=== PATIENT | male | born 1950 | race Caucasian/White ===

== ENCOUNTER 2020-02-09 18:33 | Emergency (ER) | payer MEDICARE, OTHER ==
[2020-02-09 19:03] LABS: #Lymphocytes 0.6 thou/uL (1.20-3.40); #Monocytes 0.6 thou/uL (0.11-0.59); #Neutrophils 2.7 thou/uL (1.40-6.50); %Basophils 0.7 % (0.0-1.0); %Eosinophils 0.8 % (0.0-10.0); %Lymphocytes 15.5 % (21.0-51.0); %Monocytes 13.9 % (0.0-10.0); %Neutrophils 69.1 % (42.0-75.0); Hemoglobin 15.6 g/dL (14.0-18.0); Mean Corpuscular HGB CONC 31.4 g/dL (32.0-36.0); Mean Corpuscular Hemoglobin 30.8 pg (27.0-31.0); Mean Corpuscular Volume 98.2 fL (78.0-98.0); Platelet Count 217 thou/uL (130-400); RBC Distribution Width 12.6 % (11.5-14.5); Red Blood Cell (RBC) Count 5.06 mill/uL (4.70-6.10); White Blood Cell (WBC) Count 3.9 thou/uL (4.8-10.8)
[2020-02-09] MEDS ORDERED: Ondansetron PF 4 MG/2 ML Vial ONE ×2 (19:04→20:12)
[2020-02-09 19:19] LABS: ALT (SGPT) 26 U/L (8-55); AST (SGOT) 34 U/L (5-34); Alkaline Phosphatase 86 U/L (40-110); Anion Gap 15 mmol/L (10-20); BUN (Urea Nitrogen) 21 mg/dL (8.4-25.7); Bilirubin, Total 0.4 mg/dL (0.2-1.2); Calc. Creatinine Clearance 0 mL/min (70-130); Calcium 9.5 mg/dL (7.8-10.44); Carbon Dioxide 27 mmol/L (23-31); Chloride 99 mmol/L (98-107); Globulin 3.4 g/dL (2.4-3.5); Glucose 78 mg/dL (83-110); Potassium 4.2 mmol/L (3.5-5.1); Protein, Total 7.4 g/dL (5.8-8.1); Sodium 137 mmol/L (136-145)
--- NOTE | 2020-02-09 19:51 | RAD ---
XR Chest 1 View HISTORY: Cough COMPARISON: 09/30/2013 FINDINGS: The heart size is normal. Changes of median sternotomy are again seen. The lungs are well e xpanded without focal areas of consolidation, pneumothorax or pleural effusions. IMPRESSION: No radiographic evidence of acute cardiopulmonary process.
[2020-02-09] MEDS ORDERED: Acetaminophen 500 MG TAB ONE (20:48)
[2020-02-09 21:16] LABS: Bacteria/HPF None Seen HPF (None Seen); Bilirubin Negative (Negative); Blood, Urine Negative (Negative); Clarity Clear (Clear); Glucose, Urine (Dipstick) Greater than 1000 mg/dL (Negative); Ketone, Urine 60 mg/dL (Negative); Leukocyte Negative Leu/uL (Negative); Nitrite Negative (Negative); Protein, Urine (Dipstick) 30 mg/dL (Neg-Trace); RBC/HPF 0-3 HPF (0-3); Specific Gravity, Urine 1.037 (1.002-1.036); Squamous Epithelial None Seen HPF (0-3); Urobilinogen Normal mg/dL (Less than 2); WBC/HPF 0-3 HPF (0-3); pH, Urine 5.5 (5.0-9.0)
--- NOTE | 2020-02-23 16:57 | EKG ---
Test Reason : Blood Pressure : / mmHG Vent. Rate : 090 BPM Atrial Rate : 090 BPM P-R Int : 158 ms QRS Dur : 146 ms QT Int : 376 ms P-R-T Axes : 050 024 076 degrees QTc Int : 459 ms Normal sinus rhythm Right bundle branch block Abnormal ECG Confirmed by SARAH NELSON DO ([id number]), primer expeditor and drier NASH MORAN ([id number]) on 02/23/2020 4:56:49 PM Referred By: Confirmed By:SARAH NELSON DO
== END 2020-02-09 21:10 | disposition home or self-care (01) ==
LOC: ERS 18:33
DX: B34.9 Viral infection, unspecified (principal); R53.1 Weakness; E10.9 Type 1 diabetes mellitus without complications; E78.5 Hyperlipidemia, unspecified; E78.00 Pure hypercholesterolemia, unspecified; I10 Essential (primary) hypertension; Z79.4 Long term (current) use of insulin; Z79.899 Other long term (current) drug therapy
CPT/HCPCS: 36415; 71045; 80053; 81003; 81015; 84484; 85025; 93005; 96374; 96376; J2405

== ENCOUNTER 2020-02-10 19:17 | Emergency (ER) | payer MEDICARE, OTHER ==
--- NOTE | 2020-02-10 20:07 | RAD ---
XR Chest 1 View Portable HISTORY: Fever COMPARISON: Previous day FINDINGS: The heart size is normal. Changes of median sternotomy are again seen. The lungs are well e xpanded without focal areas of consolidation, pneumothorax or pleural effusions. IMPRESSION: No radiographic evidence of acute cardiopulmonary process.
[2020-02-10] MEDS ORDERED: Azithromycin 500 MG VIAL ONE (21:21)
[2020-02-10] MEDS ORDERED: Apixaban 2.5 MG TAB PO SCH (21:30)
[2020-02-10] MEDS ORDERED: Azithromycin 250 MG TAB ONE (21:34)
== END 2020-02-10 21:45 | disposition home or self-care (01) ==
LOC: ERS 19:17
DX: U07.1 COVID-19 (principal); E10.9 Type 1 diabetes mellitus without complications; E78.5 Hyperlipidemia, unspecified; E78.00 Pure hypercholesterolemia, unspecified; I10 Essential (primary) hypertension; Z79.899 Other long term (current) drug therapy; Z79.82 Long term (current) use of aspirin
CPT/HCPCS: 71045; J0456

== ENCOUNTER 2020-03-25 07:29 | Outpatient (CLI) | payer OTHER ==
--- NOTE | 2020-03-25 08:42 | MRI ---
MRI of thelumbar spine: 03/25/2020 COMPARISON:None available HISTORY:Bilateral lower extremity radiculopathy, back pain TECHNIQUE: Multiplanar multisequence MR imaging of thelumbar spine without contrast Findings:The sagittal STIR imaging demonstrates no focal area of osseous marrow edema. On the basis o f 5 lumbar type vertebral bodies, the conus medullaris terminates at the L1 level. T12-L1: There is disc space narrowing with disc desiccation and mild disc bulge. Mild bilateral facet hypertrophy with no significant central canal or neural foraminal stenosis. L1-2: Mild bilateral facet hypertrophy. No central canal or neural foraminal stenosis. L2-3: Mild bilateral facet hypertrophy, left greater than right. No significant central canal or neur al foraminal stenosis. L3-4: There is disc desiccation with mild bilateral facet hypertrophy. There is mild left neural fora ryan stenosis. No significant central canal or right neural foraminal stenosis. L4-5: There is disc space narrowing and disc desiccation. There is a central annular tear with an ass ociated central disc protrusion. There is also prominent bilateral facet hypertrophy and hypertrophy of the ligamentum flavum. Findings lead to severe central canal stenosis. There is mild r ight and severe left neural foraminal stenosis. L5-S1: Significant bilateral facet hypertrophy, right greater than left. No central canal stenosis. M oderate right and mild left neural foraminal stenosis. The imaged retroperitoneal structures demonstrate no acute findings. Axial imaging is limited by harry ent motion artifact IMPRESSION:There is multilevel degenerative change within the lumbar spine, most prominent at the L4- 5 level as detailed above.
== END 2020-03-25 07:30 | disposition home or self-care (01) ==
LOC: TBSIIMAG 07:29
PROVIDERS: ATTEND Physical Medicine & Rehabilitation
DX: M47.26 Other spondylosis with radiculopathy, lumbar region (principal)
CPT/HCPCS: 72148

== ENCOUNTER 2020-05-19 06:30 | Observation (INO) | payer MEDICARE, OTHER ==
[2020-05-16 10:53] VITALS: BMI 28.8
--- NOTE | 2020-05-19 12:13 | OP ---
DATE OF PROCEDURE: 05/19/2020 RESTAURANT GREETER: Efe. PROCEDURE PERFORMED: L4-L5 laminectomy. DESCRIPTION OF PROCEDURE: The patient was brought to the operating room and intubated. He was rolled in a prone position on gel-filled chest rolls. Incision made, exposing L4 and L5 and the level was confirmed by x-ray. We performed complete L5 and inferior L4 laminectomy, it was completely decompressing the neural elements. The wound was extensively irrigated. Maximum hemostasis was secured. Vancomycin powder was applied and the wound was closed in anatomic layers over a drain. Job ID: [id number]
[2020-05-19] MEDS ORDERED: Morphine 2 MG/ML VIAL SLOW IVP PRN (12:45)
[2020-05-19] MEDS ORDERED: tiZANidine HCl 4 MG TAB PO PRN (12:45)
[2020-05-19] MEDS ORDERED: Ondansetron PF 4 MG/2 ML Vial SLOW IVP PRN (12:45)
[2020-05-19] MEDS ORDERED: diphenhydrAMINE 50 MG/ML VIAL IVP PRN (12:45)
[2020-05-19] MEDS ORDERED: Acetaminophen/Codeine 30-300mg Tablet PO PRN (12:45)
[2020-05-19] MEDS ORDERED: traMADol HCl 50 MG TAB PO PRN ×2 (12:45)
[2020-05-19] MEDS ORDERED: Mag-Al 1200 mg/1200 mg/30 ML UDCUP PO PRN (12:45)
[2020-05-19] MEDS ORDERED: diphenhydrAMINE 25 MG CAP PO PRN (12:45)
[2020-05-19] MEDS ORDERED: Morphine 4 MG/ML VIAL SLOW IVP PRN (12:45)
[2020-05-19] MEDS ORDERED: Promethazine HCl 12.5 MG SUPP PR PRN (12:45)
[2020-05-19] MEDS ORDERED: Promethazine 25 MG TAB PO PRN (12:45)
[2020-05-19] MEDS ORDERED: Milk Of Magnesia 30 ML UDCUP PO PRN (12:45)
[2020-05-19] MEDS ORDERED: Promethazine HCl 25 MG/ML VIAL IM PRN (12:45)
--- NOTE | 2020-05-19 14:15 | PDOC.CONS ---
- Consultation Encounter Date: 05/19/20 Encounter Time: 14:05 CONSULTATION NOTE CONSULT REQUEST BY: Cassandra Wilks PA-C HISTORY OF PRESENT ILLNESS: Mr. Reyna is a 70 year-old male with a PMHx of T2DM, HLD, Hypothyroidism, HTN, CAD s/p 3v CABG, GERD, CKD, PAT with CPAP, and lumbar stenosis who underwent a laminectomy with Dr. Zaidi on 05/19/20. Hospitalist service was consulted for medical management of patient's chronic conditions. Patient was examined at the bedside post-operatively and endorses mild pain, but otherwise has no complaints. He denies any chest pain, SOB, abdominal pain. Denies any new numbness weakness or paresthesias. He denies nausea and has not yet passed gas. Chart and medications reviewed. REVIEW OF SYSTEMS: Constitutional: denies: fever, chills, sweats, weakness, malaise, other Eyes: denies: pain, vision change, conjunctivae inflammation, eyelid inflammation, redness, other ENT: denies: ear pain, ear discharge, nose pain, nose discharge, nose congestion, mouth pain, mouth swelling, throat pain, throat swelling, other Respiratory: denies: cough, dry, shortness of breath, hemoptysis, SOB with excer tion, pleuritic pain, sputum, wheezing, other Cardiovascular: denies: chest pain, palpitations, orthopnea, paroxysmal noc. dyspnea, edema, light headedness, other Gastrointestinal: denies: nausea, vomiting, abdominal pain, diarrhea, constipation, melena, hematochezia, other Genitourinary: denies: dysuria, frequency, incontinence, hematuria, retention, other Musculoskeletal: denies: neck pain, shoulder pain, arm pain, back pain, hand pain, leg pain, foot pain, other Skin: denies: rash, lesions, jose, bruising, other Neurological: denies: weakness, numbness, incoordination, change in speech, confusion, seizures, other PAST MEDICAL HISTORY: 1. T2DM 2. CAD s/p 3v CABG 3. HTN 4. HLD 5. GERD 6. Hypothyroidism 7. PAT 8. CKD 9. Lumbar stenosis PAST SURGICAL HISTORY: 3v CABG s/p laminectomy SOCIAL HISTORY: Denies tobacco, alcohol, or drug use. Lives at home with . FAMILY HISTORY: No pertinent family history PHYSICAL EXAM: General Appearance: NAD, awake alert Eye: PERRL, anicteric sclera ENT: normocephalic atraumatic, no oropharyngeal lesions, moist mucosa Neck: supple, symmetric, no JVD, no thyromegaly, no lymphadenopathy, no carotid bruit Heart: RRR, no murmur, no gallops, no rubs, normal peripheral pulses Respiratory: CTAB, no wheezes, no rales, no ronchi, normal chest expansion, no tachypnea, normal percussion Gastrointestinal: soft, non-distended, normal bowel sounds, no palpable masses, no hepatomegaly, no splenomegaly, no bruit, non-tender to palpation Extremities: no cyanosis, no clubbing, no edema Skin: normal turgor, no lesions, no rashes Neurological: cranial nerve grossly intact, normal sensation to touch, no weakness, no focal deficits, no new deficit, lumbar KOLBY drain in place with scant serosanginous drainage Musculoskeletal: normal tone, normal strength, no muscle wasting Psychiatric: normal affect, normal behavior, A&O x 3 ASSESSMENT AND PLAN: #s/p laminectomy Pt POD #[address] Zaidi on 05/19/20. Pt tolerated procedure well. Post-operative course per surgical team Encouraged IS, SCDs in place #T1DM Hold home invokana. Continue long-acting insulin at 1/2 dose (9 units). ISS, ACHS glucose checks. #HTN Continue home metoprolol #HLD Continue home atorvastatin #Hypothyroidism Continue levothyroxine #CAD No chest pain. Continue aspirin at direction of surgical team when possible. #GERD Pantoprazole #PAT Use CPAP at night DVT prophylaxis- per surgical team FULL CODE Case discussed with attending physician, Dr. Duran.
[2020-05-19] MEDS: Sodium Chloride 0.9% 1,000 ML IV SCH (14:18)
[2020-05-19] MEDS: CEFAZOLIN 2 GM in Premix Bag 1 BAG IVPB SCH ×2 (14:18→17:24)
[2020-05-19] MEDS: Acetaminophen/Codeine 30-300mg Tablet PO PRN ×2 (14:22→21:34)
[2020-05-19] MEDS ORDERED: Dextrose 50% Abboject 50 ML SYRINGE SLOW IVP PRN (15:02)
[2020-05-19] MEDS ORDERED: Dextrose 5% in Water 1,000 ML IV PRN (15:02)
[2020-05-19] MEDS ORDERED: HumaLOG 300 UNITS/3 ML VIAL SC PRN ×2 (15:02)
[2020-05-19] MEDS ORDERED: Atorvastatin Calcium 40 MG TAB PO SCH (21:00)
[2020-05-19] MEDS: Metoprolol Tartrate 25 MG TAB PO SCH (21:22)
[2020-05-20] MEDS: CEFAZOLIN 2 GM in Premix Bag 1 BAG IVPB SCH ×2 (03:00→10:31)
[2020-05-20] MEDS: Sodium Chloride 0.9% 1,000 ML IV SCH (03:00)
[2020-05-20] MEDS: Acetaminophen/Codeine 30-300mg Tablet PO PRN ×4 (03:04→13:09)
[2020-05-20] MEDS ORDERED: Levothyroxine Sodium 88 MCG TAB PO SCH (06:00)
[2020-05-20 08:06] LABS: #Eosinphils 0.1 thou/uL (0.0-0.7); #Lymphocytes 0.9 thou/uL (1.20-3.40); #Neutrophils 6.5 thou/uL (1.40-6.50); %Basophils 0.4 % (0.0-1.0); %Eosinophils 1.7 % (0.0-10.0); %Lymphocytes 10.8 % (21.0-51.0); %Monocytes 11.7 % (0.0-10.0); %Neutrophils 75.4 % (42.0-75.0); Hemoglobin 13.7 g/dL (14.0-18.0); Mean Corpuscular HGB CONC 32.4 g/dL (32.0-36.0); Mean Corpuscular Hemoglobin 32.1 pg (27.0-31.0); Mean Corpuscular Volume 99.3 fL (78.0-98.0); Mean Platelet Volume 5.8 fL (7.4-10.4); Platelet Count 240 thou/uL (130-400); RBC Distribution Width 13.7 % (11.5-14.5); Red Blood Cell (RBC) Count 4.26 mill/uL (4.70-6.10); White Blood Cell (WBC) Count 8.6 thou/uL (4.8-10.8)
[2020-05-20] MEDS: Metoprolol Tartrate 25 MG TAB PO SCH (08:15)
[2020-05-20 08:27] LABS: Anion Gap 14 mmol/L (10-20); BUN (Urea Nitrogen) 20 mg/dL (8.4-25.7); Calc. Creatinine Clearance 79 mL/min (70-130); Carbon Dioxide 27 mmol/L (23-31); Chloride 100 mmol/L (98-107); Glucose 136 mg/dL (83-110); Potassium 4.6 mmol/L (3.5-5.1); Sodium 136 mmol/L (136-145)
--- NOTE | 2020-05-20 08:56 | PDOC.HOSPP ---
- Subjective Encounter Date: 05/20/20 Encounter Time: 08:54 Subjective: No overnight events. Pt up walking with PT. Denies chest pain, SOB, or abdominal pain. Has not passed gas or had a BM yet. Chart and medications reviewed. - Objective Vital Signs & Weight: Vital Signs (12 hours) Temp Pulse Resp BP Pulse Ox 05/20/20 07:20 98.4 F 64 20 123/72 96 05/20/20 05:09 99 05/20/20 02:58 97.9 F 61 18 174/81 H 99 05/19/20 23:43 98.2 F 70 20 134/72 99 Weight Weight 207 lb I&O: 05/19/20 05/20/20 05/21/20 06:59 06:59 06:59 Intake Total 2146 Output Total 1805 Balance 341 Result Diagrams: 05/20/20 07:57 05/20/20 07:57 Additional Labs: Accuchecks 05/20/20 05/19/20 05/19/20 06:18 20:09 12:38 POC Glucose 101 H 176 H 138 H Hospitalist ROS - Review of Systems Constitutional: denies: fever, chills, sweats, weakness, malaise, other Eyes: denies: pain, vision change, conjunctivae inflammation, eyelid inflammation, redness, other ENT: denies: ear pain, ear discharge, nose pain, nose discharge, nose congestion, mouth pain, mouth swelling, throat pain, throat swelling, other Respiratory: denies: cough, dry, shortness of breath, hemoptysis, SOB with excertion, pleuritic pain, sputum, wheezing, other Cardiovascular: denies: chest pain, palpitations, orthopnea, paroxysmal noc. dyspnea, edema, light headedness, other Gastrointestinal: denies: nausea, vomiting, abdominal pain, diarrhea, constipation, melena, hematochezia, other Genitourinary: denies: dysuria, frequency, incontinence, hematuria, retention, other Musculoskeletal: denies: neck pain, shoulder pain, arm pain, back pain, hand trell n, leg pain, foot pain, other Skin: denies: rash, lesions, jose, bruising, other Neurological: denies: weakness, numbness, incoordination, change in speech, confusion, seizures, other - Medication Medications: Active Medications Generic Name Dose Route Start Last Admin Trade Name Freq PRN Reason Stop Dose Admin Acetaminophen/Codeine Phosphate 2 tab 05/19/20 12:45 05/20/20 06:18 Acetaminophen/Codeine 30-300mg Tablet PO 2 tab Q3H PRN Administration PAIN (4-6) Atorvastatin Calcium 40 mg 05/19/20 21:00 05/19/20 21:22 Atorvastatin Calcium 40 Mg Tab PO 40 mg HS DALE Administration Sodium Chloride 1,000 mls @ 75 mls/hr 05/19/20 12:45 05/20/20 03:00 Normal Saline 0.9% IV Not Given .[id number] DALE Cefazolin Sodium/Dextrose 2 gm 50 mls @ 100 mls/hr 05/20/20 02:00 05/20/20 03:00 / Device IVPB 50 mls 0200,1000,1800 DALE Administration Levothyroxine Sodium 88 mcg 05/20/20 06:00 05/20/20 05:38 Levothyroxine Sodium 88 Mcg Tab PO 88 mcg 0600 DALE Administration Metoprolol Tartrate 12.5 mg 05/19/20 21:00 05/20/20 08:15 Metoprolol Tartrate 25 Mg Tab PO 12.5 mg BID DALE Administration Morphine Sulfate 2 mg 05/19/20 12:45 05/19/20 15:33 Morphine 2 Mg/Ml Vial SLOW IVP 2 mg Q1H PRN Administration Moderate Breakthrough Pain Pantoprazole Sodium 40 mg 05/20/20 09:00 05/20/20 08:15 Pantoprazole 40 Mg Vial IVP 40 mg DAILY DALE Administration Tizanidine HCl 4 mg 05/19/20 12:45 05/19/20 15:32 Tizanidine Hcl 4 Mg Tab PO 4 mg Q6H PRN Administration MUSCLE SPASM Hospitalist Exam Vitals: Vital Signs (12 hours) Temp Pulse Resp BP Pulse Ox 05/20/20 07:20 98.4 F 64 20 123/72 96 05/20/20 05:09 99 05/20/20 02:58 97.9 F 61 18 174/81 H 99 05/19/20 23:43 98.2 F 70 20 134/72 99 Weight Weight 207 lb General Appearance: NAD, awake alert Eye: PERRL, anicteric sclera ENT: normocephalic atraumatic, no oropharyngeal lesions, moist mucosa Neck: supple, symmetric, no JVD, no thyromegaly, no lymphadenopathy, no carotid bruit Heart: RRR, no murmur, no gallops, no rubs, normal peripheral pulses Respiratory: CTAB, no wheezes, no rales, no ronchi, normal chest expansion, no tachypnea, normal percussion Gastrointestinal: soft, non-tender, non-distended, normal bowel sounds, no palpable masses, no hepatomegaly, no splenomegaly, no bruit Extremities: no cyanosis, no clubbing, no edema Skin: normal turgor, no lesions, no rashes Neurological: cranial nerve grossly intact, normal sensation to touch, no weakness, no focal deficits, no new deficit Musculoskeletal: normal tone, normal strength, no muscle wasting Musculoskeletal - other findings: KOLBY drain in place with serosanginuous drainage Psychiatric: normal affect, normal behavior, A&O x 3 Hosp A/P - Plan #s/p laminectomy Pt POD #[address] Zaidi on 05/19/20. Pt tolerated procedure well. Post-operative course per surgical team Bowel prep Encouraged IS, SCDs in place #T1DM Hold home invokana. Continue long-acting insulin at 1/2 dose (9 units). ISS, ACHS glucose checks. #HTN Continue home metoprolol #HLD Continue home atorvastatin #Hypothyroidism Continue levothyroxine #CAD No chest pain. Continue aspirin at direction of surgical team when possible. #GERD Pantoprazole #PAT Use CPAP at night DVT prophylaxis- per surgical team FULL CODE Case discussed with attending physician, Dr. Duran.
[2020-05-20] MEDS ORDERED: Senokot S 8.6-50 MG TAB PO SCH (09:00)
[2020-05-20] MEDS ORDERED: Insulin Glargine 9 UNITS in Pre-Filled Syringe 1 EACH SC SCH (09:00)
[2020-05-20] MEDS ORDERED: Pantoprazole 40 MG VIAL IVP SCH (09:00)
[2020-05-20] MEDS ORDERED: Non-Formulary Item 1 EACH (Insulin Degludec [Tresiba Flextouch U-100] 100 UNIT/ML Insuln. SQ SCH (09:00)
[2020-05-20 12:08] VITALS: BP 126/75; TEMP 98
--- NOTE | 2020-05-21 06:41 | DIS ---
DATE OF ADMISSION: 05/19/2020 DATE OF DISCHARGE: 05/20/2020 PROCEDURE PERFORMED: L4-L5 laminectomy. DISCHARGE SUMMARY: The patient is a 70-year-old male, recently evaluated in our office for progressive claudicatory leg pain. He was found to have significant stenosis at L4-L5 and underwent L4-L5 laminectomy on 05/19/2020. Following the surgery, he was transitioned to the Med/Surg floor, where his pain has been well controlled with p.o. medications, he is tolerating regular diet, and he is voiding appropriately. He has had 55 out from his KOLBY drain and this was removed on postoperative day #1. I will go ahead and dismiss to home. He has had prescriptions sent to the [facility] on [facility], Tylenol No. 3 and tizanidine. I have checked CERTIFIED NURSE OPERATING ROOM AWARxE prior to discharge. Will follow up in 2 weeks. Job ID: [id number] MTDD
== END 2020-05-20 13:50 | disposition home or self-care (01) ==
LOC: SDC 06:30 → SURG B 10:58
PROVIDERS: ADMIT Neurological Surgery; ATTEND Neurological Surgery
PROC: 01NB0ZZ Release Lumbar Nerve, Open Approach (ICD-10-PCS; principal; 2020-05-19)
DX: M48.062 Spinal stenosis, lumbar region with neurogenic claudication (principal); I12.9 Hypertensive chronic kidney disease with stage 1 through stage 4 chronic kidney disease, or unspecified chronic kidney disease; E11.22 Type 2 diabetes mellitus with diabetic chronic kidney disease; N18.9 Chronic kidney disease, unspecified; I25.10 Atherosclerotic heart disease of native coronary artery without angina pectoris; E03.9 Hypothyroidism, unspecified; E78.5 Hyperlipidemia, unspecified; K21.9 Gastro-esophageal reflux disease without esophagitis; G47.33 Obstructive sleep apnea (adult) (pediatric); Z79.4 Long term (current) use of insulin; Z79.899 Other long term (current) drug therapy; Z95.1 Presence of aortocoronary bypass graft
CPT/HCPCS: 63047; 76000; 80048; 82962 ×2; 85025; 96365; 96366; 96375 ×2; 97116; 97139; G0378 ×2; J2270; 36415; 36416; C9113; J0690; J1815

== ENCOUNTER 2021-08-24 08:34 | Outpatient (CLI) | payer MEDICARE, OTHER ==
[2020-05-14 11:36] LABS: Hemoglobin 14.2 g/dL (13.5-17.5); Mean Corpuscular HGB CONC 32.3 g/dL (32.0-36.0); Mean Corpuscular Hemoglobin 31.8 pg (27.0-33.0); Mean Corpuscular Volume 98.2 fl (81.2-95.1); Mean Platelet Volume 8.9 fl (7.4-10.4); Platelet Count 258 10x3/uL (150-450); RBC Distribution Width 14.7 % (11.5-14.5); Red Blood Cell (RBC) Count 4.47 10x6/uL (4.32-5.72); White Blood Cell (WBC) Count 5.3 10x3/uL (3.5-10.5)
[2020-05-14 12:09] LABS: Anion Gap 13 mmol/L (10-20); BUN (Urea Nitrogen) 25 mg/dL (8.4-25.7); Calc. Creatinine Clearance 0 mL/min (70-130); Calcium 9.5 mg/dL (7.8-10.44); Carbon Dioxide 27 mmol/L (23-31); Chloride 103 mmol/L (98-107); Glucose 115 mg/dL (83-110); Potassium 4.8 mmol/L (3.5-5.1); Sodium 138 mmol/L (136-145)
[2020-05-14 18:02] LABS: SARS-CoV-2 PCR by NAA Not Detected (NotDetected)
[2021-08-24 20:01] LABS: SARS-CoV-2 PCR by NAA Not Detected (NotDetected)
== END 2021-08-24 08:35 | disposition home or self-care (01) ==
LOC: LABBT 08:34
PROVIDERS: ATTEND Ophthalmology Retina Specialist
DX: Z01.818 Encounter for other preprocedural examination (principal); H35.342 Macular cyst, hole, or pseudohole, left eye; Z20.822 Contact with and (suspected) exposure to COVID-19
CPT/HCPCS: 80048; 85027; 93005; U0003 ×2; U0005 ×2; 93010

== ENCOUNTER 2021-08-27 06:05 | Day surgery (SDC) | payer MEDICARE, OTHER ==
[2021-08-25 14:34] VITALS: BMI 27.8
[2021-08-27] MEDS ORDERED: fentaNYL Citrate/PF 100 MCG/2 ML SYRINGE ONE (06:23)
[2021-08-27] MEDS ORDERED: Midazolam HCl 2 mg/2 ml Vial ONE (06:23)
[2021-08-27] MEDS ORDERED: Phenylephrine 2.5% Ophth Soln 5 ML BOT ONE (06:36)
[2021-08-27] MEDS ORDERED: Cyclopentolate 1% Opth Drop 2 ML BOT ONE (06:36)
[2021-08-27] MEDS ORDERED: Fluorouracil 100 MG, Enoxaparin Sodium 25 MG, EPINEPHrine 0.3 MG in Ophthalmic Irrigati... IRR SCH (06:45)
[2021-08-27] MEDS ORDERED: Lidocaine 1% PF 5 ML VIAL ONE (07:18)
[2021-08-27] MEDS ORDERED: CEFAZOLIN 1 GM VIAL ONE (07:18)
[2021-08-27] MEDS ORDERED: Enoxaparin Sodium 30 MG/0.3 ML SYRINGE ONE (07:18)
[2021-08-27] MEDS ORDERED: Triamcinolone 40 MG/ML VIAL ONE (07:18)
[2021-08-27] MEDS ORDERED: Lidocaine 4% PF 5 ML AMP ONE (07:18)
[2021-08-27] MEDS ORDERED: PROPOFOL 200 MG/20 ML VIAL ONE (07:18)
[2021-08-27] MEDS ORDERED: Indocyanine Green 25 MG/10 ML VIAL ONE (07:18)
[2021-08-27] MEDS ORDERED: Bupivacaine 0.75% 10 ML VIAL ONE (07:18)
[2021-08-27] MEDS ORDERED: Maxitrol 0.1% Opth Oint 3.5 GM TUBE ONE (07:18)
== END 2021-08-27 09:05 | disposition home or self-care (01) ==
LOC: SDC 06:05
PROVIDERS: ATTEND Ophthalmology Retina Specialist
PROC: 08T53ZZ Resection of Left Vitreous, Percutaneous Approach (ICD-10-PCS; principal; 2021-08-27)
PROC: 08NF3ZZ Release Left Retina, Percutaneous Approach (ICD-10-PCS; 2021-08-27)
DX: H35.372 Puckering of macula, left eye (principal); H35.342 Macular cyst, hole, or pseudohole, left eye; G47.33 Obstructive sleep apnea (adult) (pediatric); E78.5 Hyperlipidemia, unspecified; I10 Essential (primary) hypertension; E11.9 Type 2 diabetes mellitus without complications; E03.9 Hypothyroidism, unspecified; Z79.4 Long term (current) use of insulin; Z79.82 Long term (current) use of aspirin; Z79.84 Long term (current) use of oral hypoglycemic drugs; Z79.890 Hormone replacement therapy; Z79.899 Other long term (current) drug therapy; Z95.1 Presence of aortocoronary bypass graft
CPT/HCPCS: 36416; 67025; J0171; J0690; J1650; J2250; J2704; J3301; J3490; J9190

== ENCOUNTER 2022-04-16 19:00 | Outpatient (CLI) | payer MEDICARE, OTHER | END 2022-04-16 19:01 | disposition home or self-care (01) | LOC: SLEEPLAB 19:00 | PROVIDERS: ATTEND Otolaryngology Plastic Surgery within the Head & Neck | DX: G47.31 Primary central sleep apnea (principal); G47.33 Obstructive sleep apnea (adult) (pediatric) | CPT/HCPCS: 95811 ==

== ENCOUNTER 2023-09-30 07:59 | Outpatient (CLI) | payer MEDICARE, OTHER | END 2023-09-30 08:00 | disposition home or self-care (01) | LOC: BICCT 07:59 | PROVIDERS: ATTEND Internal Medicine | DX: K55.9 Vascular disorder of intestine, unspecified (principal); I70.1 Atherosclerosis of renal artery | CPT/HCPCS: 74174; 82565 ==

== ENCOUNTER 2023-10-05 16:53 | Inpatient (IN) | payer MEDICARE, OTHER ==
[~2023-10-05 16:53] MED LIST: Iopamidol-370 76% 500 ML MDV (1 ML CHARGE) ONE
[2023-10-05 17:31] LABS: Hematocrit 41.4 % (42.0-52.0); Mean Corpuscular HGB CONC 33.8 g/dL (32.0-36.0); Mean Corpuscular Hemoglobin 32.6 pg (27.0-31.0); Mean Corpuscular Volume 96.3 fL (78.0-98.0); Mean Platelet Volume 8.7 fL (7.4-10.4); Platelet Count 244 10x3/uL (130-400); RBC Distribution Width 13.2 % (11.5-14.5)
[2023-10-05 17:34] LABS: PTT 27.6 sec (22.9-36.1); Prothrombin Time 12.8 sec (12.0-14.7)
[2023-10-05 17:41] LABS: Troponin I Less than 0.010 ng/mL (< 0.028)
[2023-10-05 17:46] LABS: Eosinophils 6 % (0-10); Lymphocytes 11 % (21-51); Metamyelocyte 3 % (0-0); Monocytes 12 % (0-10); Neutrophil 67 % (42-75); Platelet Adequacy Comment Platelets Normal; Polychromasia SLIGHT = 2-3 cells HPF (0-2); Tear Drops SLIGHT = 2-5 cells HPF (0-1)
[2023-10-05] MEDS ORDERED: Aspirin Chewable 81 MG TAB ONE (18:13)
[2023-10-05 18:45] LABS: ALT (SGPT) 33 U/L (8-55); AST (SGOT) 37 U/L (5-34); Albumin 3.8 g/dL (3.4-4.8); Alkaline Phosphatase 89 U/L (40-110); Anion Gap 13 mmol/L (10-20); BUN (Urea Nitrogen) 21 mg/dL (8.4-25.7); Bilirubin, Total 0.4 mg/dL (0.2-1.2); Calc. Creatinine Clearance 0 mL/min (70-130); Calcium 9.9 mg/dL (7.8-10.44); Carbon Dioxide 27 mmol/L (23-31); Chloride 103 mmol/L (98-107); Estimated GFR 42; Globulin 3.4 g/dL (2.4-3.5); Glucose 143 mg/dL (83-110); Potassium 4.5 mmol/L (3.5-5.1); Protein, Total 7.2 g/dL (5.8-8.1); Sodium 138 mmol/L (136-145)
[2023-10-05] MEDS ORDERED: Dextrose 5% in Water 1,000 ML IV PRN (18:55)
[2023-10-05] MEDS ORDERED: hydrALAZINE 20 MG/ML VIAL SLOW IVP PRN (18:55)
[2023-10-05] MEDS ORDERED: HumaLOG 300 UNITS/3 ML VIAL SC PRN (18:55)
[2023-10-05] MEDS ORDERED: Dextrose 50% Abboject 50 ML SYRINGE SLOW IVP PRN (18:55)
[2023-10-05] MEDS ORDERED: Glucagon 1 MG/ML KIT IM PRN (18:55)
[2023-10-05 20:59] LABS: Troponin I Less than 0.010 ng/mL (< 0.028)
[2023-10-05 22:57] VITALS: BMI 28.3
[2023-10-05] MEDS: Ranolazine ER 500 MG TAB PO SCH (23:28)
[2023-10-05] MEDS: Pantoprazole DR 40 MG TAB PO SCH (23:28)
[2023-10-05] MEDS: Atorvastatin Calcium 40 MG TAB PO SCH (23:28)
[2023-10-05] MEDS: Metoprolol Tartrate 25 MG TAB PO SCH (23:29)
[2023-10-05] MEDS: guaiFENesin ER 600 MG TAB PO SCH (23:29)
[2023-10-05] MEDS: Levothyroxine Sodium 88 MCG TAB PO SCH (23:29)
[2023-10-06 00:11] LABS: Troponin I Less than 0.010 ng/mL (< 0.028)
[2023-10-06] MEDS: Levothyroxine Sodium 88 MCG TAB PO SCH (02:28)
[2023-10-06] MEDS: Insulin Lispro 100 UNIT/ML 10 ML VIAL SC PRN (05:57)
[2023-10-06 07:19] LABS: #Basophils 0.05 10x3/uL (0.0-0.2); %Basophils 1.2 % (0.0-1.0); %Lymphocytes 11.2 % (21.0-51.0); %Monocytes 17.5 % (0.0-10.0); %Neutrophils 65.6 % (42.0-75.0); Hematocrit 41.3 % (42.0-52.0); Hemoglobin 13.8 g/dL (14.0-18.0); Mean Corpuscular HGB CONC 33.4 g/dL (32.0-36.0); Mean Corpuscular Hemoglobin 32.3 pg (27.0-31.0); Mean Corpuscular Volume 96.7 fL (78.0-98.0); Mean Platelet Volume 9.1 fL (7.4-10.4); Platelet Count 240 10x3/uL (130-400); RBC Distribution Width 13.2 % (11.5-14.5); Red Blood Cell (RBC) Count 4.27 mill/uL (4.70-6.10)
[2023-10-06 07:49] LABS: Anion Gap 13 mmol/L (10-20); BUN (Urea Nitrogen) 20 mg/dL (8.4-25.7); Calc. Creatinine Clearance 76 mL/min (70-130); Calcium 9.5 mg/dL (7.8-10.44); Carbon Dioxide 23 mmol/L (23-31); Cardiac Risk 2.6 (Less than 4.5); Chloride 106 mmol/L (98-107); Cholesterol 131 mg/dl (< 200 Desired); Estimated GFR 71; Glucose 152 mg/dL (83-110); HDL Cholesterol 51 mg/dL (>60 Neg Risk); LDL Cholesterol, Calculated 67 mg/dL; Potassium 4.2 mmol/L (3.5-5.1); Sodium 138 mmol/L (136-145); Triglycerides 66 mg/dL (Less than 150)
[2023-10-06] MEDS: Aspirin 81 mg Enteric Coated Tablet PO SCH (10:35)
[2023-10-06] MEDS ORDERED: Albuterol 1.25 MG (3 mL) NEB NEB PRN (13:01)
[2023-10-06] MEDS: Benzonatate 100 MG CAP PO SCH (13:31)
[2023-10-06] MEDS: Acetaminophen 500 MG TAB PO PRN (18:42)
[2023-10-06] MEDS: guaiFENesin/DM ER PO SCH (20:01)
[2023-10-06] MEDS: Ranolazine ER 500 MG TAB PO SCH (20:10)
[2023-10-06] MEDS ORDERED: Tadalafil [Cialis] 5 MG Tablet PO SCH (21:00)
[2023-10-07] MEDS: Fish Oil 1,000 MG CAP PO SCH (08:53)
[2023-10-07] MEDS: Pantoprazole DR 40 MG TAB PO SCH (08:54)
[2023-10-07] MEDS ORDERED: Aspirin 325 MG TAB PO SCH (09:00)
[2023-10-07 16:36] VITALS: BP 120/72; TEMP 98.1
== END 2023-10-07 17:30 | disposition home or self-care (01) | DRG 66 ==
LOC: ERS 16:53 → 2SE 18:18 → OBSVTOIN 10-06 13:00
PROVIDERS: ADMIT Hospitalist; ATTEND Internal Medicine
DX: I63.9 Cerebral infarction, unspecified (principal); E78.5 Hyperlipidemia, unspecified; E03.9 Hypothyroidism, unspecified; I25.10 Atherosclerotic heart disease of native coronary artery without angina pectoris; E11.22 Type 2 diabetes mellitus with diabetic chronic kidney disease; G47.33 Obstructive sleep apnea (adult) (pediatric); M48.061 Spinal stenosis, lumbar region without neurogenic claudication; I12.9 Hypertensive chronic kidney disease with stage 1 through stage 4 chronic kidney disease, or unspecified chronic kidney disease; Z95.1 Presence of aortocoronary bypass graft; Z79.899 Other long term (current) drug therapy
CPT/HCPCS: 36415; 36416; 70450; 70496; 70498; 70551; 71045; 80048; 80053; 80061; 84443; 84484; 85025; 85610; 85730; 93005; 93306; 93880; 94760; G0378; J1815; Q9967

== ENCOUNTER 2023-12-22 07:34 | Outpatient (CLI) | payer MEDICARE, OTHER | END 2023-12-22 07:35 | disposition home or self-care (01) | LOC: BICULT 07:34 | PROVIDERS: ATTEND Internal Medicine Nephrology | DX: I12.9 Hypertensive chronic kidney disease with stage 1 through stage 4 chronic kidney disease, or unspecified chronic kidney disease (principal); N18.9 Chronic kidney disease, unspecified | CPT/HCPCS: 76770; 93975 ==

== ENCOUNTER 2023-12-29 06:05 | Day surgery (SDC) | payer MEDICARE, OTHER ==
[2023-12-28 10:31] VITALS: BMI 28.4
[2023-12-29] MEDS ORDERED: Propofol 1,000 MG/100 ML VIAL IV ONE (06:44)
[2023-12-29] MEDS ORDERED: Lidocaine 2% PF 5 ML VIAL ONE (06:48)
[2023-12-29] MEDS ORDERED: PROPOFOL 40 ML ONE (06:48)
[2023-12-29] MEDS ORDERED: Vasopressin 20 UNITS/ML VIAL ONE (06:55)
[2023-12-29] MEDS ORDERED: ePHEDrine Sulfate 50 MG/10 ML VIAL ONE (07:00)
[2023-12-29] MEDS ORDERED: fentaNYL 50 mcg/mL 1 mL Vial ONE (08:09)
== END 2023-12-29 09:09 | disposition home or self-care (01) ==
LOC: SDC 06:05
PROVIDERS: ATTEND Internal Medicine
PROC: 0DBK8ZZ Excision of Ascending Colon, Via Natural or Artificial Opening Endoscopic (ICD-10-PCS; principal; 2023-12-29)
PROC: 0DBA8ZX Excision of Jejunum, Via Natural or Artificial Opening Endoscopic, Diagnostic (ICD-10-PCS; 2023-12-29)
DX: Z12.11 Encounter for screening for malignant neoplasm of colon (principal); K63.5 Polyp of colon; K31.7 Polyp of stomach and duodenum; K64.8 Other hemorrhoids; K64.4 Residual hemorrhoidal skin tags; K21.9 Gastro-esophageal reflux disease without esophagitis; Z86.010 Personal history of colon polyps; Z86.73 Personal history of transient ischemic attack (TIA), and cerebral infarction without residual deficits; Z79.899 Other long term (current) drug therapy
CPT/HCPCS: 43239; 45385; 82962; J2001; J2704 ×2; J3010; 36416; 88305

== ENCOUNTER 2024-01-25 07:33 | Outpatient (CLI) | payer MEDICARE, OTHER ==
[2024-01-25] MEDS ORDERED: Iopamidol 370 76% 100 ML VIAL ONE (10:36)
== END 2024-01-25 07:34 | disposition home or self-care (01) ==
LOC: BICCT 07:33
PROVIDERS: ATTEND Student in an Organized Health Care Education/Training Program
DX: I65.23 Occlusion and stenosis of bilateral carotid arteries (principal)
CPT/HCPCS: 36415; 70498; 82565; Q9967